=== PATIENT | female | born 1995 ===

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

== ENCOUNTER → 2017-05-06 | Outpatient (CLI) | payer OTHER | LOC: BRMIMAGING 14:14 | DX: N13.30 Unspecified hydronephrosis (principal) | CPT/HCPCS: 76770-PO ==

== ENCOUNTER → 2017-06-24 | Outpatient (CLI) | payer OTHER | LOC: BRMIMAGING 13:07 | DX: R10.9 Unspecified abdominal pain (principal) | CPT/HCPCS: 76770-PO ==

== ENCOUNTER → 2018-12-21 | Outpatient (CLI) | payer OTHER | LOC: FIMAGING 15:22 | PROVIDERS: ATTEND Internal Medicine | DX: D35.2 Benign neoplasm of pituitary gland (principal); E28.2 Polycystic ovarian syndrome; N20.0 Calculus of kidney | CPT/HCPCS: A9585 ==